=== PATIENT | female | born 1935 | race Hispanic/Latino ===

== ENCOUNTER 2017-08-19 16:58 | Inpatient (IN) | payer MEDICARE ==
[2017-08-19 16:59] VITALS: BMI 32.5
--- NOTE | 2017-08-19 18:21 | ED PDOC ---
HPI: Hypertension/Hypotension Time Seen by Provider: 08/19/17 17:26 Chief Complaint (Nursing): High Blood Pressure Chief Complaint (Provider): Elevated blood pressure History Per: Patient Onset/Duration Of Symptoms: Days (3) Current Symptoms Are (Timing): Still Present Additional Complaint(s): 82yo female, with past medical history of hypertension, hypercholesterolemia, myelofibrosis, anemia, gout, presents to ED for evaluation of elevated blood pressure for the past 3 days. Patient reports she has been taking medication as prescribed with no relief of symptom. She also states she has dyspnea on exertion, which has been ongoing for years and is unchanged. She also reports leg edema for many months, worse over past 6 weeks but unchanged over the past 3 days. Patient denies any shortness of breath at rest, no chest pain, headache , changes in medications. Of note, patient states she recently started using vitamins for her eyes as told by her opthalmologist; patient unsure of name of vitamin. She states she had similar symptoms a few years ago and was seen here, given an extra rahman of Clonodine and discharged home. she has no other complaints. PCP: Dr. Francisco Javier Roper Past Medical History Reviewed: Historical Data, Nursing Documentation, Vital Signs Vital Signs: Last Vital Signs Temp 98.6 F 08/19/17 17:20 Pulse 91 H 08/19/17 17:20 Resp 16 08/19/17 17:20 BP 263/97 H 08/19/17 17:20 Pulse Ox 97 08/19/17 17:20 - Medical History PMH: Anemia, HTN, Hypercholesterolemia - Surgical History Surgical History: No Surg Hx - Family History Family History: States: Hypertension - Social History Current smoker - smoking cessation education provided: No Alcohol: None Drugs: Denies - Home Medications Home Medications: Ambulatory Orders Medication Instructions Recorded cloNIDine [clonidine HCl] 0.2 mg PO HS 03/08/15 Allopurinol [Zyloprim] 300 mg PO HS 10/14/16 Folic Acid 1 mg PO HS 10/14/16 Losartan [Cozaar] 100 mg PO BID 10/14/16 Ruxolitinib Phosphate [Jakafi] 15 mg PO HS 10/14/16 Simvastatin [Zocor] 20 mg PO HS 10/14/16 Cu/Se/Vit A/Vit C/Vit E/Zinc 1 tab PO BID 08/19/17 [Ocuvite] - Allergies Allergies/Adverse Reactions: Allergies Allergy/AdvReac Type Severity Reaction Status Date / Time codeine Allergy RASH Verified 08/19/17 17:20 Review of Systems ROS Statement: Except As Marked, All Systems Reviewed And Found Negative (as per HPI) Cardiovascular: Positive for: Other (elevated blood pressure). Negative for: Chest Pain Respiratory: Positive for: Other (dyspnea on exertion). Negative for: Shortness of Breath (at rest) Neurological: Negative for: Headache Physical Exam - Reviewed Nursing Documentation Reviewed: Yes Vital Signs Reviewed: Yes - Physical Exam Appears: Positive for: Non-toxic, No Acute Distress Head Exam: Positive for: ATRAUMATIC, NORMOCEPHALIC Skin: Positive for: Warm, Dry Eye Exam: Positive for: EOMI, PERRL ENT: Negative for: Pharyngeal Erythema, Tonsillar Exudate Neck: Positive for: Painless ROM, Supple Cardiovascular/Chest: Positive for: Regular Rate, Rhythm, Edema, Murmur Respiratory: Positive for: Normal Breath Sounds. Negative for: Rales, Wheezing , Respiratory Distress Gastrointestinal/Abdominal: Positive for: Soft. Negative for: Tenderness Back: Positive for: Normal Inspection. Negative for: Decreased ROM Extremity: Positive for: Pedal Edema. Negative for: Deformity Lymphatic: Negative for: Adenopathy Neurologic/Psych: Positive for: Alert. Negative for: Motor/Sensory Deficits - Laboratory Results Result Diagrams: 08/19/17 18:43 08/19/17 18:43 - ECG O2 Sat by Pulse Oximetry: 97 (RA) Pulse Ox Interpretation: Normal Medical Decision Making Medical Decision Making: Time: 1750 Impression: Hypertension Differential: acute kidney injury, CHR, electrolyte abnormalities, benign essential hypertension, accelerated hypertension. Plan: -- Labs -- Catapres 0.2 -- EKG Reassess Time: [address] Paris Roper who agrees with plan. States he has seen patient 2x this year, and at both visit pt had marked elevated blood pressure. 1900 Labs demonstrate acute renalinsufficiency and fluid overload vs CHF. Needs hospitalization for potential accelerated hypertension. DW Dr Roper again as well as with family and patient. Scribe Attestation: Documented by Tricia Gaston acting as a scribe for Yeimi Dupree MD. Provider Attestation: All medical record entries made by the Scribe were at my direction and personally dictated by me. I have reviewed the chart and agree that the record accurately reflects my personal performance of the history, physical exam, medical decision making, and the department course for this patient. I have also personally directed, reviewed, and agree with the discharge instructions and disposition. Disposition - Clinical Impression Clinical Impression: Uncontrolled hypertension, Renal insufficiency - Disposition Disposition Time: 19:00 Condition: GUARDED - Pt Status Changed To: Hospital Disposition Of: Observation - POA Present On Arrival: None
[2017-08-19 18:47] LABS: BASO % 0.4 % (0.0-2.0); EOS # 0.1 K/uL (0.0-0.7); EOS % 1.9 % (0.0-4.0); HEMATOCRIT 27.4 % (34.0-47.0); LYMPH # 0.8 K/uL (1.0-4.3); LYMPH % 13.9 % (20.0-40.0); MEAN CELL VOLUME 92.6 fl (81.0-99.0); MEAN CORPUSCULAR HEMOGLOBIN 30.2 pg (27.0-31.0); MEAN CORPUSCULAR HGB CONC 32.6 g/dL (33.0-37.0); MEAN PLATELET VOLUME 7.3 fl (7.2-11.7); MONO # 0.4 K/uL (0.0-0.8); MONO % 6.2 % (0.0-10.0); NEUT # 4.6 K/uL (1.8-7.0); NEUT % 77.6 % (50.0-75.0); NRBC % 0.1 % (0.0-0.0); RED CELL DISTRIBUTION WIDTH 18.1 % (11.5-14.5); WHITE BLOOD COUNT 5.9 K/uL (4.8-10.8)
[2017-08-19 18:57] LABS: ALB/GLOB RATIO 1.5 (1.0-2.1); BILIRUBIN,TOTAL 0.8 mg/dl (0.2-1.3); CALCIUM 9.4 mg/dL (8.4-10.2); MAGNESIUM 2.3 MG/DL (1.6-2.3); PHOSPHOROUS 4.1 mg/dl (2.5-4.5); POTASSIUM 5.2 MMOL/L (3.6-5.0); TOTAL PROTEIN 7.1 G/DL (6.3-8.2)
[2017-08-19 19:08] LABS: TROPONIN I 0.029 ng/mL (0.00-0.120)
[2017-08-20 06:41] LABS: ALB/GLOB RATIO 1.4 (1.0-2.1); CALCIUM 9.3 mg/dL (8.4-10.2); POTASSIUM 5.4 MMOL/L (3.6-5.0); TOTAL PROTEIN 7.4 G/DL (6.3-8.2)
[2017-08-20] MEDS: Multivitamin With Minerals Tab PO SCH (09:47)
--- NOTE | 2017-08-20 09:59 | CP.PCM.CON ---
History of Present Illness - History of Present Illness History of Present Illness: This patient is a 82 years of age I was called to see for abnormal kidney function. Patient was admitted with very high blood pressure require some medications and she has been having difficulty to control of the blood pressure because she is having some side effect of some antihypertensive medication. Patient was on losartan as well No nausea no vomiting reported and no headache . No chest pain no shortness of breath at the present. Past medical history Significant for #1 hypertension. #2 chronic kidney disease serum creatinine baseline in the range of 1.9 or so. #3 history of polycythemia and she is being receiving medication. Review of Systems - Constitutional Constitutional: As Per HPI, Weakness. absent: Headache, Night Sweats - Cardiovascular Cardiovascular: Edema, Leg Edema. absent: Acrocyanosis, Chest Pain, Dyspnea, Leg Ulcers - Respiratory Respiratory: absent: Cough, Dyspnea, Hemoptysis - Gastrointestinal Gastrointestinal: absent: Abdominal Pain, Coffee Ground Emesis, Cramping, Diarrhea - Genitourinary Genitourinary: Nocturia - Musculoskeletal Musculoskeletal: Muscle Weakness. absent: Arthralgias, Numbness - Neurological Neurological: absent: Confusion, Dizziness, Focal Weakness, Headaches - Psychiatric Psychiatric: absent: Anxiety - Hematologic/Lymphatic Hematologic: absent: Easy Bleeding Past Patient History - Past Medical History & Family History Past Medical History?: Yes - Past Social History Alcohol: None Drugs: Denies - CARDIAC Hx Hypercholesterolemia: Yes Hx Hypertension: Yes - ENDOCRINE/METABOLIC Hx Diabetes Mellitus Type 2: No - HEMATOLOGICAL/ONCOLOGICAL Hx Anemia: Yes - MUSCULOSKELETAL/RHEUMATOLOGICAL Hx Falls: No - PSYCHIATRIC Hx Substance Use: No - SURGICAL HISTORY Hx Tonsillectomy: Yes - ANESTHESIA Hx Anesthesia: Yes Hx Anesthesia Reactions: No Meds Allergies/Adverse Reactions: Allergies Allergy/AdvReac Type Severity Reaction Status Date / Time codeine Allergy RASH Verified 08/19/17 17:20 - Medications Medications: Current Medications Allopurinol (Zyloprim) 300 mg PO HS [facility] Atorvastatin Calcium (Lipitor) 10 mg PO HS [facility] Last Admin: 08/19/17 23:05 Dose: 10 mg Clonidine HCl (Catapres) 0.2 mg PO BID [facility] Last Admin: 08/20/17 09:47 Dose: 0.2 mg Folic Acid (Folic Acid) 1 mg PO HS [facility] Last Admin: 08/19/17 23:05 Dose: 1 mg Heparin Sodium (Porcine) (Heparin) 5,000 units SC Q12 [facility] PRN Reason: Protocol Last Admin: 08/20/17 09:47 Dose: 5,000 units Home Med (Ruxolitinib Phosphate [Jakafi]) 15 mg PO HS [facility] Multivitamins/Minerals (Therapeutic-M Tab) 1 tab PO DAILY [facility] Last Admin: 08/20/17 09:47 Dose: 1 tab Physical Exam - Constitutional Appears: No Acute Distress - ENT Exam ENT Exam: Mucous Membranes Moist - Neck Exam Neck exam: Negative for: Lymphadenopathy - Respiratory Exam Respiratory Exam: NORMAL BREATHING PATTERN. absent: Chest Wall Tenderness, Rhonchi - Cardiovascular Exam Cardiovascular Exam: REGULAR RHYTHM. absent: JVD, Rubs - GI/Abdominal Exam GI & Abdominal Exam: Normal Bowel Sounds, Soft. absent: Distended - Extremities Exam Extremities exam: Positive for: pedal edema. Negative for: calf tenderness - Back Exam Back exam: absent: CVA tenderness (L), CVA tenderness (R) - Neurological Exam Neurological exam: Alert Results - Vital Signs Recent Vital Signs: Last Vital Signs Temp 97.5 F L 08/20/17 08:00 Pulse 72 08/20/17 09:47 Resp 18 08/20/17 08:00 BP 174/68 H 08/20/17 09:47 Pulse Ox 98 08/20/17 08:00 - Labs Result Diagrams: 08/19/17 18:43 08/20/17 05:00 Labs: Laboratory Results - last 24 hr 08/19/17 08/19/17 08/20/17 18:43 18:43 05:00 WBC 5.9 RBC 2.96 L Hgb 8.9 L Hct 27.4 L MCV 92.6 MCH 30.2 MCHC 32.6 L RDW 18.1 H Plt Count 125 L MPV 7.3 Neut % (Auto) 77.6 H Lymph % (Auto) 13.9 L [place] % (Auto) 6.2 Eos % (Auto) 1.9 Baso % (Auto) 0.4 Neut # 4.6 Lymph # 0.8 L [place] # 0.4 Eos # 0.1 Baso # 0.0 Sodium 145 144 Potassium 5.2 H 5.4 H Chloride 115 H 115 H Carbon Dioxide 20 L 15 L Anion Gap 15 19 BUN 45 H 44 H Creatinine 2.1 H 2.0 H Est GFR ( Amer) 27 29 Est GFR (Non-Af Amer) 23 24 Random Glucose 99 124 H Calcium 9.4 9.3 Phosphorus 4.1 Magnesium 2.3 Total Bilirubin 0.8 1.0 AST 25 29 ALT 38 29 Alkaline Phosphatase 79 85 Troponin I 0.0290 NT-Pro-B Natriuret Pep 3230 H Total Protein 7.1 7.4 Albumin 4.3 4.3 Globulin 2.8 3.0 Albumin/Globulin Ratio 1.5 1.4 Assessment & Plan (1) Chronic kidney disease, stage IV (severe) Assessment and Plan: #1 chronic kidney disease is stage IV. With serum baseline creatinine in the range of 1.9. Slight worsening of kidney function consistent with acute kidney injury perhaps related to hemodynamic changes with the hypertension. Suggestion Ultrasound of the kidney Serum phosphorus and PTH and vitamin D Protein to creatinine ratio in the urine. Renal diet consistent of 50 g protein 2 g sodium 2 g potassium #2 hypertension Patient CLONIDINE WHICH HAS BEEN INCREASED TODAY ALSO NORVASC I SUGGEST THE HYDROCHLOROTHIAZIDE 12.5 MG DAILY BECAUSE OF THE LEG EDEMA. #3 hyperkalemia although losartan discontinue but we will give small dose of Kayexalate #4 anemia and polycythemia as per hematology. 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
--- NOTE | 2017-08-20 10:00 | CP.PCM.HP ---
History of Present Illness - History of Present Illness History of Present Illness: This 82-year-old female long- standing hypertensive and chronically overweight came into the emergency room complaining of a persistently elevated blood pressure reading on her home blood pressure recording device. The patient is a poor historian and has at times been irregular in taking her medications and occasionally has high quantities of salt in her diet. Her blood pressure has been poorly controlled over a number of years. She has a fairly sedentary lifestyle and she has been overweight for number of years. The patient also has a history of myeloproliferative disease which had manifested itself as polycythemia initially and now she is in the phase of myelofibrosis. She requires repeated blood transfusions. She has no prior history of diabetes mellitus. One of her sisters was a diabetic for number of years. The patient has never suffered a myocardial infarction or congestive cardiac failure. Physical examination shows an elderly female who is alert awake and core her and she is afebrile she breathes comfortably at 14-16 breaths per minutes and has a heart rate of 72 bpm and regular. Her pedal pulses were feeble but distinctly present. There were no carotid bruits. Her extremities are warm and the nailbeds are pink there was no central or peripheral cyanosis. There was no clubbing. Thyroid and breast did not reveal anything abnormal. There was a mild pitting edema over both lower extremities. JVP was not elevated. The apex was not palpable. The first and second heart sounds were normal. A brief ejection systolic murmur was audible in the aortic area. It was conducted to the base of the neck. There were no rales. Abdomen was soft and slightly protuberant nontender and soft. Her electrocardiogram showed sinus rhythm with inverted T waves in 1 and aVL as well as V5 and V6, a pattern seen on her electrocardiogram of 2013 as well. Her lab data now shows a hemoglobin and hematocrit of 8.9 g and 27.4% respectively her WBC count and platelet counts were essentially normal. Her BUN/creatinine where 45 and 2.1 mg percent at admission these were in the range of 30 and 1.8 mg percent for more than 2 years. Her GFR is now 23 mL per minute it has been in the range of 27-30 mL per minute for a year and a half to 2 years. Her potassium was 5.2 mg/L at admission and is now 5.4 mg/L her losartan has been withheld for this reason. An echocardiogram done in 2013 had shown a significantly hypertrophied left ventricle with preserved left ventricular systolic function and is depressed diastolic compliance. There was no significant valvulopathy. Impression: Severe uncontrolled hypertension in a patient with chronic hypertension, exogenous obesity and stage III CKD possibly hypertension induced. Myeloproliferative disease with myelofibrosis. The patient had declined to use calcium channel blockers because of pedal edema. Her ARB has been withheld because of hyperkalemia and I have increased her dose of clonidine from 0.2 mg once a day to twice a day. I have requested a nephrology evaluation because of gradually worsening BUN/creatinine. An echocardiogram is also requested to evaluate her left ventricular systolic function. Present on Admission - Present on Admission Any Indicators Present on Admission: No Past Patient History - Past Medical History & Family History Past Medical History?: Yes - Past Social History Alcohol: None Drugs: Denies - CARDIAC Hx Hypercholesterolemia: Yes Hx Hypertension: Yes - ENDOCRINE/METABOLIC Hx Diabetes Mellitus Type 2: No - HEMATOLOGICAL/ONCOLOGICAL Hx Anemia: Yes - MUSCULOSKELETAL/RHEUMATOLOGICAL Hx Falls: No - PSYCHIATRIC Hx Substance Use: No - SURGICAL HISTORY Hx Tonsillectomy: Yes - ANESTHESIA Hx Anesthesia: Yes Hx Anesthesia Reactions: No Meds Allergies/Adverse Reactions: Allergies Allergy/AdvReac Type Severity Reaction Status Date / Time codeine Allergy RASH Verified 08/19/17 17:20 Results - Vital Signs Recent Vital Signs: Last Vital Signs Temp 97.5 F L 08/20/17 08:00 Pulse 72 08/20/17 09:47 Resp 18 08/20/17 08:00 BP 174/68 H 08/20/17 09:47 Pulse Ox 98 08/20/17 08:00 - Labs Result Diagrams: 08/19/17 18:43 08/20/17 05:00 Labs: Laboratory Results - last 24 hr 08/19/17 08/19/17 08/20/17 18:43 18:43 05:00 WBC 5.9 RBC 2.96 L Hgb 8.9 L Hct 27.4 L MCV 92.6 MCH 30.2 MCHC 32.6 L RDW 18.1 H Plt Count 125 L MPV 7.3 Neut % (Auto) 77.6 H Lymph % (Auto) 13.9 L [place] % (Auto) 6.2 Eos % (Auto) 1.9 Baso % (Auto) 0.4 Neut # 4.6 Lymph # 0.8 L [place] # 0.4 Eos # 0.1 Baso # 0.0 Sodium 145 144 Potassium 5.2 H 5.4 H Chloride 115 H 115 H Carbon Dioxide 20 L 15 L Anion Gap 15 19 BUN 45 H 44 H Creatinine 2.1 H 2.0 H Est GFR ( Amer) 27 29 Est GFR (Non-Af Amer) 23 24 Random Glucose 99 124 H Calcium 9.4 9.3 Phosphorus 4.1 Magnesium 2.3 Total Bilirubin 0.8 1.0 AST 25 29 ALT 38 29 Alkaline Phosphatase 79 85 Troponin I 0.0290 NT-Pro-B Natriuret Pep 3230 H Total Protein 7.1 7.4 Albumin 4.3 4.3 Globulin 2.8 3.0 Albumin/Globulin Ratio 1.5 1.4
[2017-08-20 10:12] LABS: CHOLESTEROL 188 mg/dL (0-199)
[2017-08-20] MEDS ORDERED: Sod Polystyrene Sulf 15 gm/60 ml Susp PO ONE (10:17)
--- NOTE | 2017-08-20 14:35 | US ---
PROCEDURE: Ultrasound of the Kidneys HISTORY: [id number] COMPARISON: None available. TECHNIQUE: Sonogram of the kidneys. FINDINGS: RIGHT KIDNEY: Measures: 5.8 x 4.9 x 11.4 cm. Normal in size, contour and echogenicity. No stone, solid mass lesion or hydronephrosis visualized. Incidental finding(s): Lower pole cysts less than 1 cm. Parapelvic cysts 1.5 x 1.4 cm LEFT KIDNEY: Measures: 4.3 x 4.8 x 10.7 cm. Normal in size, contour and echogenicity. No stone, solid mass lesion or hydronephrosis visualized. Multiple (3) simple cysts none larger than 9 mm. OTHER FINDINGS: None. IMPRESSION: No significant or acute findings to account for/ related to the clinical presentation. Additional benign and/or incidental findings described above.
[2017-08-20 17:22] LABS: CREATININE, RANDOM URINE 52.6 mg/dL
--- NOTE | 2017-08-20 17:54 | CARD ---
APPROVED REPORT EXAM: Two-dimensional and M-mode echocardiogram with Doppler and color Doppler. Other Information Quality : GoodRhythm : NSR INDICATION Hypertension/HCVD 2D DIMENSIONS IVSd1.67 (0.7-1.1cm)LVDd4.86 (3.9-5.9cm) LVOT Diameter2.16 (1.8-2.4cm)PWd1.60 (0.7-1.1cm) IVSs1.84 (0.8-1.2cm)LVDs2.62 (2.5-4.0cm) FS (%) 46.1 %PWs1.61 (0.8-1.2cm) LVEF (%)55.0 (>50%) M-Mode DIMENSIONS Left Atrium (MM)4.88 (2.5-4.0cm)IVSd1.29 (0.7-1.1cm) Aortic Root2.44 (2.2-3.7cm)LVDd5.41 (4.0-5.6cm) Aortic Cusp Exc.1.71 (1.5-2.0cm)PWd1.29 (0.7-1.1cm) IVSs1.79 cmFS (%) 55 % LVDs2.41 (2.0-3.8cm)PWs2.12 cm Aortic Valve AoV Peak Bjnkzrvb547.9cm/sAoV VTI44.7cmAO Peak GR.20mmHg LVOT Peak Amubjvay319.0cm/sLVOT VTI27.81cmAO Mean GR.11mmHg ART (VMAX)1.62on1HHC (VTI)1.24cm2 Mitral Valve MV E Euqwvodw140.2cm/sMV DECEL [id number] A Ybkfxlri829.1cm/s MV KKK08ekL/A ratio1.1MVA (PHT)3.13cm2 TDI Lateral E' Peak V6.27cm/sMedial E' Peak V7.99cm/sE/Lateral E'22.5 E/Medial E'17.7 LEFT VENTRICLE The left ventricle is normal size. There is moderate to severe concentric left ventricular hypertrophy. The left ventricular function is normal. The left ventricular ejection fraction is within the normal range. There is normal LV segmental wall motion. Transmitral Doppler flow pattern is Grade I-abnormal relaxation pattern. RIGHT VENTRICLE The right ventricle is normal size. There is normal right ventricular wall thickness. The right ventricular systolic function is normal. ATRIA The left atrium is mildly dilated. The right atrium size is normal. AORTIC VALVE The aortic valve is moderately sclerotic. No aortic regurgitation is present. There is mild valvular aortic stenosis. MITRAL VALVE The mitral valve is moderately thickened. There is no mitral valve stenosis. There is no mitral valve regurgitation noted. TRICUSPID VALVE The tricuspid valve is normal in structure. There is no tricuspid valve regurgitation noted. PULMONIC VALVE The pulmonary valve is normal in structure. There is no pulmonic valvular regurgitation. GREAT VESSELS The aortic root is normal in size. The IVC is normal in size and collapses >50% with inspiration. PERICARDIAL EFFUSION There is a trace loculated anterior pericardial effusion. <Conclusion> The left ventricle is normal size. There is moderate to severe concentric left ventricular hypertrophy. The left ventricular function is normal. The left ventricular ejection fraction is within the normal range. There is normal LV segmental wall motion. Transmitral Doppler flow pattern is Grade I-abnormal relaxation pattern. The aortic valve is moderately sclerotic. There is mild valvular aortic stenosis. A small PFO is noted
--- NOTE | 2017-08-20 19:09 | CARD ---
APPROVED REPORT EKG Measurement Heart [id number] <Conclusion> Sinus rhythm with premature atrial complexes Anteroseptal infarct, age undetermined T wave abnormality, consider lateral ischemia Abnormal ECG
[2017-08-21] MEDS: Multivitamin With Minerals Tab PO SCH (08:55)
--- NOTE | 2017-08-21 09:35 | CP.PCM.PN ---
Subjective - Date & Time of Evaluation Date of Evaluation: 08/21/17 Time of Evaluation: 08:50 - Subjective Subjective: Sitting up eating breakfast (appears rested and comfortable) Spiked syst BP >210mm Hg last evening ( otherwise BP has been mosly under 180 mm Hg syst) Now BP 168/70 mm Hg (Now on HCTZ, Clonidine .2 mg BID and Norvasc) Physical findings unchanged (Except No pedal oedema) Echo images reviewed LVH with vigorous LV wall motion and preserved syst function Mild AV sclerosis with trivial gradient Renal US shows normal renal size Proteinurea++ Lipid profile noted Await today's labs Have arranged dietitian to explain renal /HTN diet to pt Dr. Avilez's input appreciated Spoke with pt's daughter Objective - Vital Signs/Intake and Output Vital Signs (last 24 hours): Temp Pulse Resp BP Pulse Ox 97.7 F 66 20 188/63 H 97 08/21/17 08:00 08/21/17 08:56 08/21/17 08:00 08/21/17 08:56 08/21/17 08:00 - Medications Medications: Current Medications Allopurinol (Zyloprim) 300 mg PO HS [facility] Last Admin: 08/20/17 22:13 Dose: 300 mg Amlodipine Besylate (Norvasc) 10 mg PO DAILY [facility] Atorvastatin Calcium (Lipitor) 10 mg PO HS [facility] Last Admin: 08/20/17 22:12 Dose: 10 mg Clonidine HCl (Catapres) 0.2 mg PO BID [facility] Last Admin: 08/21/17 08:56 Dose: 0.2 mg Folic Acid (Folic Acid) 1 mg PO HS [facility] Last Admin: 08/20/17 22:13 Dose: 1 mg Heparin Sodium (Porcine) (Heparin) 5,000 units SC Q12 [facility] PRN Reason: Protocol Last Admin: 08/21/17 08:55 Dose: 5,000 units Home Med (Ruxolitinib Phosphate [Jakafi]) 15 mg PO HS [facility] Hydrochlorothiazide (Microzide) 12.5 mg PO DAILY [facility] Last Admin: 08/21/17 08:56 Dose: 12.5 mg Multivitamins/Minerals (Therapeutic-M Tab) 1 tab PO DAILY [facility] Last Admin: 08/21/17 08:55 Dose: 1 tab - Labs Labs: 08/19/17 18:43 08/20/17 05:00
[2017-08-21 09:46] LABS: ALB/GLOB RATIO 1.5 (1.0-2.1); CALCIUM 9.5 mg/dL (8.4-10.2); POTASSIUM 4.6 MMOL/L (3.6-5.0); TOTAL PROTEIN 6.9 G/DL (6.3-8.2)
--- NOTE | 2017-08-21 11:41 | CP.PCM.PN ---
Subjective - Date & Time of Evaluation Date of Evaluation: 08/21/17 Time of Evaluation: 11:27 - Subjective Subjective: Patient is up and around Patient feeling good no nausea no vomiting Vital sign noted was blood pressure is elevated as noted. No headache no shortness of breath no difficulty breathing. Objective - Vital Signs/Intake and Output Vital Signs (last 24 hours): Temp Pulse Resp BP Pulse Ox 97.7 F 66 20 188/63 H 97 08/21/17 08:00 08/21/17 10:28 08/21/17 08:00 08/21/17 10:28 08/21/17 08:00 - Medications Medications: Current Medications Allopurinol (Zyloprim) 300 mg PO HS [facility] Last Admin: 08/20/17 22:13 Dose: 300 mg Amlodipine Besylate (Norvasc) 10 mg PO DAILY [facility] Last Admin: 08/21/17 10:28 Dose: 10 mg Atorvastatin Calcium (Lipitor) 10 mg PO [facility] Last Admin: 08/20/17 22:12 Dose: 10 mg Clonidine HCl (Catapres) 0.2 mg PO BID [facility] Last Admin: 08/21/17 08:56 Dose: 0.2 mg Folic Acid (Folic Acid) 1 mg PO HS [facility] Last Admin: 08/20/17 22:13 Dose: 1 mg Heparin Sodium (Porcine) (Heparin) 5,000 units SC Q12 [facility] PRN Reason: Protocol Last Admin: 08/21/17 08:55 Dose: 5,000 units Home Med (Ruxolitinib Phosphate [Jakafi]) 15 mg PO [facility] Multivitamins/Minerals (Therapeutic-M Tab) 1 tab PO DAILY [facility] Last Admin: 08/21/17 08:55 Dose: 1 tab - Labs Labs: 08/19/17 18:43 08/21/17 09:25 - Constitutional Appears: No Acute Distress - ENT Exam ENT Exam: Mucous Membranes Moist - Respiratory Exam Respiratory Exam: NORMAL BREATHING PATTERN. absent: Chest Wall Tenderness - Cardiovascular Exam Cardiovascular Exam: REGULAR RHYTHM. absent: JVD, Rubs - GI/Abdominal Exam GI & Abdominal Exam: Soft, Normal Bowel Sounds - Extremities Exam Extremities Exam: absent: Calf Tenderness - Back Exam Back Exam: absent: CVA tenderness (L), CVA tenderness (R) - Neurological Exam Neurological Exam: Alert - Skin Skin Exam: Intact. absent: Cyanosis Assessment and Plan (1) Chronic kidney disease, stage IV (severe) Assessment & Plan: #1 Patient has underlying chronic kidney disease stage IV was slightly worsening kidney function. Patient received hydrochlorothiazide 12.5 mg yesterday and today And I would hold off hydrochlorothiazide for now perhaps she will need it 3 times a week when she goes as outpatient and may be a Thursday perhaps. #2 patient has what appear to be nephrotic syndrome proteinuria. Protein to creatinine ratio 8.1 proteinuria therefore patient should have kidney biopsy. Would be token to the patient. #3 hypertension patient started on Norvasc and have diet not enough to control the blood pressure we will increase her clonidine to 3 times a day. I spoke to the patient again now and she is agreeable for kidney biopsy but she will come sometime next week as outpatient to do it. So we will order PT PTT and INR in anticipation and preparation for the biopsy and to make sure no aspirin or any anticoagulation to be given within a week prior the biopsy Discussed with the primary care physician Dr. Roper We will be calling the daughter. 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
[2017-08-21] MEDS ORDERED: Ergocalciferol 50,000 Intl Units Cap PO SCH (11:45)
[2017-08-21 19:09] LABS: URINE BILIRUBIN NEGATIVE (NEGATIVE); URINE BLOOD SMALL (NEGATIVE); URINE COLOR YELLOW (YELLOW); URINE GLUCOSE (UA) 50 mg/dL (Normal); URINE KETONE NEGATIVE (NEGATIVE); URINE LEUKOCYTE ESTERASE NEG Leu/uL (Negative); URINE PROTEIN >=500 mg/dL (NEGATIVE); URINE UROBILINOGEN 0.2-1.0 mg/dL (0.2-1.0); WBC URINE 2 /hpf (0-5)
[2017-08-21 19:29] LABS: RBC URINE 5 /hpf (0-3)
[2017-08-22 00:44] VITALS: O2SAT 98
[2017-08-22 07:10] LABS: ALB/GLOB RATIO 1.5 (1.0-2.1); CALCIUM 8.9 mg/dL (8.4-10.2); POTASSIUM 5.4 MMOL/L (3.6-5.0)
[2017-08-22 08:41] VITALS: BP 172/70; PULSE 69; RESP 16; TEMP 97.4
--- NOTE | 2017-08-22 09:35 | CP.PCM.PN ---
Subjective - Date & Time of Evaluation Date of Evaluation: 08/22/17 Time of Evaluation: 09:10 - Subjective Subjective: Sitting up in a chair OOB, comfortable BP 168/64 mm Hg On Clonidine .2 mg TID and Norvasc 10 mg OD HCTZ has been D/Jayden due to rising Creatinin K+ today 5.4 mEq/L (Pt unhappy about taking Kayexalate) Renal diet (Na+/K+/Protein restricted) was explained by dietitian. Albuminuria ++++ (Pt has Nephrotic Syndr) Needs Renal Biopsy Pt and daughter agree to have it done next week Pt to have CMP/CBC on 18th AM (??K+) Will arrange Kidney biopsy for Pt to go home now/Scripts called in to [facility] PT/PTT being drawn now. Objective - Vital Signs/Intake and Output Vital Signs (last 24 hours): Temp Pulse Resp BP Pulse Ox 97.4 F L 69 16 172/70 H 98 08/22/17 08:00 08/22/17 08:00 08/22/17 08:00 08/22/17 08:00 08/22/17 08:00 - Medications Medications: Current Medications Allopurinol (Zyloprim) 300 mg PO HS [facility] Last Admin: 08/21/17 21:30 Dose: 300 mg Amlodipine Besylate (Norvasc) 10 mg PO DAILY [facility] Last Admin: 08/21/17 10:28 Dose: 10 mg Atorvastatin Calcium (Lipitor) 10 mg PO HS [facility] Last Admin: 08/21/17 21:34 Dose: 10 mg Clonidine HCl (Catapres) 0.2 mg PO TID [facility] Last Admin: 08/21/17 18:48 Dose: 0.2 mg Ergocalciferol (Drisdol 50,000 Intl Units Cap) 1 cap PO Q7D [facility] Last Admin: 08/21/17 14:46 Dose: 1 cap Folic Acid (Folic Acid) 1 mg PO HS [facility] Last Admin: 08/21/17 21:30 Dose: 1 mg Heparin Sodium (Porcine) (Heparin) 5,000 units SC Q12 [facility] PRN Reason: Protocol Last Admin: 08/21/17 21:29 Dose: 5,000 units Home Med (Ruxolitinib Phosphate [Jakafi]) 15 mg PO HS [facility] Multivitamins/Minerals (Therapeutic-M Tab) 1 tab PO DAILY [facility] Last Admin: 08/21/17 08:55 Dose: 1 tab - Labs Labs: 08/19/17 18:43 08/22/17 05:45
--- NOTE | 2017-08-22 09:55 | CP.PCM.DIS ---
Provider - Provider Date of Admission: 08/20/17 22:05 Attending physician: Marvin Roper MD Time Spent in preparation of Discharge (in minutes): 40 Hospital Course - Lab Results Lab Results: Most Recent Lab Values WBC 5.9 K/uL (4.8-10.8) 08/19/17 18:43 RBC 2.96 Mil/uL (3.80-5.20) L 08/19/17 18:43 Hgb 8.9 g/dL (12.0-16.0) L 08/19/17 18:43 Hct 27.4 % (34.0-47.0) L 08/19/17 18:43 MCV 92.6 fl (81.0-99.0) 08/19/17 18:43 MCH 30.2 pg (27.0-31.0) 08/19/17 18:43 MCHC 32.6 g/dL (33.0-37.0) L 08/19/17 18:43 RDW 18.1 % (11.5-14.5) H 08/19/17 18:43 Plt Count 125 K/uL (130-400) L 08/19/17 18:43 MPV 7.3 fl (7.2-11.7) 08/19/17 18:43 Neut % (Auto) 77.6 % (50.0-75.0) H 08/19/17 18:43 Lymph % (Auto) 13.9 % (20.0-40.0) L 08/19/17 18:43 [place] % (Auto) 6.2 % (0.0-10.0) 08/19/17 18:43 Eos % (Auto) 1.9 % (0.0-4.0) 08/19/17 18:43 Baso % (Auto) 0.4 % (0.0-2.0) 08/19/17 18:43 Neut # 4.6 K/uL (1.8-7.0) 08/19/17 18:43 Lymph # 0.8 K/uL (1.0-4.3) L 08/19/17 18:43 [place] # 0.4 K/uL (0.0-0.8) 08/19/17 18:43 Eos # 0.1 K/uL (0.0-0.7) 08/19/17 18:43 Baso # 0.0 K/uL (0.0-0.2) 08/19/17 18:43 ESR 69 mm/hr (0-30) H 08/21/17 11:52 Sodium 140 mmol/l (132-148) 08/22/17 05:45 Potassium 5.4 MMOL/L (3.6-5.0) H 08/22/17 05:45 Chloride 108 mmol/L (98-107) H 08/22/17 05:45 Carbon Dioxide 18 mmol/L (22-30) L 08/22/17 05:45 Anion Gap 19 (10-20) 08/22/17 05:45 BUN 60 mg/dl (7-17) H 08/22/17 05:45 Creatinine 2.3 mg/dl (0.7-1.2) H 08/22/17 05:45 Est GFR ( Amer) 25 08/22/17 05:45 Est GFR (Non-Af Amer) 20 08/22/17 05:45 Random Glucose 114 mg/dL (65-105) H 08/22/17 05:45 Hemoglobin A1c 6.1 % (4.2-6.5) 08/20/17 13:17 Calcium 8.9 mg/dL (8.4-10.2) 08/22/17 05:45 Phosphorus 3.9 mg/dl (2.5-4.5) 08/20/17 13:17 Magnesium 2.3 MG/DL (1.6-2.3) 08/19/17 18:43 Total Bilirubin 1.0 mg/dl (0.2-1.3) 08/22/17 05:45 AST 26 U/L (14-36) 08/22/17 05:45 ALT 34 U/L (9-52) 08/22/17 05:45 Alkaline Phosphatase 73 U/L (38-126) 08/22/17 05:45 Troponin I 0.0290 ng/mL (0.00-0.120) 08/19/17 18:43 NT-Pro-B Natriuret Pep 3230 pg/ml (0-900) H 08/19/17 18:43 Total Protein 7.0 G/DL (6.3-8.2) 08/22/17 05:45 Albumin 4.2 g/dL (3.5-5.0) 08/22/17 05:45 Globulin 2.8 gm/dL (2.2-3.9) 08/22/17 05:45 Albumin/Globulin Ratio 1.5 (1.0-2.1) 08/22/17 05:45 Triglycerides 196 mg/DL (0-149) H D 08/20/17 10:02 Cholesterol 188 mg/dL (0-199) 08/20/17 10:02 LDL Cholesterol Direct 109 mg/dL (0-129) 08/20/17 10:02 HDL Cholesterol 40 MG/DL (30-70) 08/20/17 10:02 25-OH Vitamin D Total 20.8 NG/ML (30.0-100.0) L 08/20/17 13:17 PTH Intact Whole Molec 151 pg/mL (14-64) H 08/20/17 13:17 Urine Color Yellow (YELLOW) 08/20/17 18:52 Urine Clarity Slighty-cloudy (Clear) 08/20/17 18:52 Urine pH 5.0 (5.0-8.0) 08/20/17 18:52 Ur Specific [place] 1.013 (1.003-1.030) 08/20/17 18:52 Urine Protein >=500 mg/dL (NEGATIVE) 08/20/17 18:52 Urine Glucose (UA) 50 mg/dL (Normal) 08/20/17 18:52 Urine Ketones Negative mg/dL (NEGATIVE) 08/20/17 18:52 Urine Blood Small (NEGATIVE) 08/20/17 18:52 Urine Nitrate Negative (NEGATIVE) 08/20/17 18:52 Urine Bilirubin Negative (NEGATIVE) 08/20/17 18:52 Urine Urobilinogen 0.2-1.0 mg/dL (0.2-1.0) 08/20/17 18:52 Ur Leukocyte Esterase Neg Amilcar/uL (Negative) 08/20/17 18:52 Urine RBC (Auto) 5 /hpf (0-3) H 08/20/17 18:52 Urine Microscopic WBC 2 /hpf (0-5) 08/20/17 18:52 Ur Squamous Epith Cells 2 /hpf (0-5) 08/20/17 18:52 Ur Random Creatinine 52.6 mg/dL 08/20/17 16:12 U Random Total Protein 430.0 mg/dL (0.0-12.0) H 08/20/17 16:12 - Hospital Course Hospital Course: This 82-year-old female came into the emergency room complaining of a persistently elevated blood pressure reading at home. Her systolic blood pressures consistently exceeded 200 mmHg. The patient denied any particular symptom but reported being extremely anxious about it. She has been a hypertensive for over 10 years and her blood pressure has been managed with an ARB and clonidine. The patient also has a history of myelofibrosis and is being managed with JAKAFI. She has never been a smoker or a ced diabetic and has never required anti-diabetic medications. She has never suffered a myocardial infarction or congestive cardiac failure. In the emergency room her systolic blood pressure exceeded 230 mmHg and her labs showed a BUN/creatinine of 45 and 2.1 mg percent which with moderately elevated compared to her earlier readings. The patient was hospitalized. Her electrocardiogram in the hospital showed sinus rhythm with ST-T abnormalities which were seen on earlier electro-cardiogram dating back to 2013. Her lab tests over last couple of years had shown a gradually increasing creatinine which was now in the range of 1.8-1.9 mg percent. In the emergency room her serum potassium was 5.2 mEq per liter which on following day was 5.4 mg /L. The patient was given additional doses of clonidine and hydrochlorothiazide was added because of pedal edema. She was seen by a automation architect who recommended giving her Kayexalate to correct her serum potassium. Her systolic blood pressure responded to the medications and consistently remained below 180 mmHg. In the meantime her BUN/creatinine were now 48 and 2.3 mg percent in light of which hydrochlorothiazide was withdrawn. Her serum potassium responded with a drop to 4.6 mg/L. In the meantime urinalysis showed evidence off large amount of protein in the urine and a diagnosis of nephrotic syndrome was made. A renal biopsy was recommended to patient and her daughter by the automation architect and the patient and her daughter agreed. Accordingly arrangements were made to have this done as an outpatient. The patient finally went home with her blood pressure consistently remaining around 160 to 170 mmHg Her echocardiogram in the hospital showed significant left ventricular hypertrophy with excellent systolic function. A trivial aortic gradient was detected. A dietary counseling was arranged for a renal diet. The patient verbalized understanding of her dietary restrictions. The final diagnosis was severe hypertension with newly diagnosed nephrotic syndrome myelofibrosis. The patient will obtain a complete metabolic profile to check her potassium day after tomorrow and agrees to take medication if potassium is significantly elevated. I will arrange a renal biopsy the following day. Labs were drawn to document her coagulation profile. Her platelet count was 125,000. Discharge Exam - Head Exam Head Exam: ATRAUMATIC, NORMOCEPHALIC Discharge Plan - Discharge Medications Prescriptions: cloNIDine [Catapres] 0.2 mg PO TID #100 tab amLODIPine [Norvasc] 10 mg PO DAILY #30 tab - Follow Up Plan Condition: GUARDED Disposition: HOME/ ROUTINE
[2017-08-22 10:42] LABS: PARTIAL THROMBOPLASTIN TIME 16.6 Seconds (25.6-37.1)
== END 2017-08-22 13:25 | disposition home or self-care (01) | DRG 683 ==
LOC: H.ER 16:58 → INTOOBSV 19:31 → H.ERHOLD 19:31 → H.TEL 21:30 → OBSVTOIN 08-20 22:05
PROVIDERS: ADMIT Internal Medicine Cardiovascular Disease; ATTEND Internal Medicine Cardiovascular Disease
DX: I12.9 Hypertensive chronic kidney disease with stage 1 through stage 4 chronic kidney disease, or unspecified chronic kidney disease (principal); N18.4 Chronic kidney disease, stage 4 (severe); E11.22 Type 2 diabetes mellitus with diabetic chronic kidney disease; D75.81 Myelofibrosis; E87.5 Hyperkalemia; I95.9 Hypotension, unspecified; N17.9 Acute kidney failure, unspecified; N04.9 Nephrotic syndrome with unspecified morphologic changes; D64.9 Anemia, unspecified; Z79.899 Other long term (current) drug therapy; E66.09 Other obesity due to excess calories; Z68.33 Body mass index [BMI] 33.0-33.9, adult; E78.00 Pure hypercholesterolemia, unspecified; M10.9 Gout, unspecified

== ENCOUNTER 2017-09-03 07:43 | Day surgery (SDC) | payer MEDICARE ==
[2017-09-03 08:49] VITALS: BMI 33.6
[2017-09-03] MEDS ORDERED: Midazolam 2 MG/2 ML VIAL ONE (11:17)
[2017-09-03] MEDS ORDERED: Lidocaine 2% Inj (20ml) ONE (11:53)
--- NOTE | 2017-09-03 12:13 | CP.SDSHP ---
Same Day Surgery H & P - History Proposed Procedure: US Guided Kidney Biopsy Pre-Op Diagnosis: CKD, Nephrotic Syndrome - Previous Medical/Surgical History Cardiac: Hypertension - Allergies Allergies: Allergies codeine Allergy (Verified 09/03/17 08:49) RASH - Physical Exam Vital Signs: Vital Signs 09/03/17 09/03/17 09/03/17 08:51 08:57 11:33 Temperature 97.8 F 97.3 F L Pulse Rate 55 L 55 L 65 Respiratory 18 21 Rate Blood Pressure 149/58 L 157/73 H O2 Sat by Pulse 97 100 Oximetry - Impression Impression: 82 yo female w/ ckd and nephrotic syndrome, plan us guided kidney biopsy - Date & Time Date: 09/03/17 Time: 11:45 Short Stay Discharge - Short Stay Discharge Admitting Diagnosis/Reason for Visit: NEPHROTIC SYNDROM Disposition: HOME/ ROUTINE
--- NOTE | 2017-09-03 12:14 | PCM.SURG1 ---
Surgeon's Initial Post Op Note - Surgeon's Notes Surgeon: Urbano Fontanez MD Front Office Specialist: None Type of Anesthesia: MAC Pre-Operative Diagnosis: CKD, Nephrotic Syndrome Operative Findings: Left renal cortical thinning, no hydronephrosis or nephrolithiasis Post-Operative Diagnosis: CKD, Nephrotic Syndrome Operation Performed: US guided LEFT kidney biopsy (non-targeted) Specimen/Specimens Removed: 18g core x 3 Estimated Blood Loss: EBL {In ML}: 0 Post-Op Condition: Good Date of Surgery/Procedure: 09/03/17 Time of Surgery/Procedure: 12:14
[2017-09-03] MEDS ORDERED: Sodium Chloride 0.45% 1,000 ML IV SCH (12:15)
[2017-09-03 12:54] VITALS: RESP 18
[2017-09-03 13:31] VITALS: TEMP 98
[2017-09-03 15:21] VITALS: BP 136/72; PULSE 66; O2SAT 99
--- NOTE | 2017-09-04 09:20 | US ---
PROCEDURE: ULTRASOUND-GUIDED RENAL BIOPSY CLINICAL HISTORY: 52-year-old female with chronic kidney disease and nephrotic syndrome is referred to Interventional Radiology for ultrasound-guided renal biopsy. COMPARISON: Correlation is made to renal ultrasound dated 08/20/2017. PROCEDURE: 1. Ultrasound-guided renal biopsy. PRE-PROCEDURE FINDINGS: 1. Cortical thinning without nephrolithiasis, hydronephrosis or contour deforming masses. POST-PROCEDURE FINDINGS: 1. No evidence of post-procedural complication. INTERVENTIONAL RADIOLOGIST: Urbano Fontanez M.D. (the attending was present for the entire procedure) ANESTHESIA: Provided by the attending anesthesiologist. Sedation was supervised by the anesthesiology attending with the presence of independent radiology nursing monitoring. Physiological data monitoring was performed throughout the entire procedure. The patient's blood pressure, EKG and pulse oximetry were recorded. The patient tolerated the procedure and sedation without untoward reactions. The intra-procedural sedation time was 25 minutes. MEDICATION: Lidocaine 1% for local subcutaneous analgesia. COMPLICATIONS: None. PROCEDURE DESCRIPTION AND FINDINGS: The risks, benefits, alternatives and possible complications of the procedure were fully discussed; all questions were answered and informed consent was obtained. The patient was brought into the interventional suite and a pre-procedure 'time-out' was performed. The patient was placed on the ultrasound table in the prone position. The left flank was prepped and draped in the usual sterile fashion. Maximum sterile barrier precautions were maintained throughout the entire procedure. Preliminary ultrasound images of the left kidney demonstrate increased echogenicity without nephrolithiasis, hydronephrosis or contour deforming masses. Following subcutaneous infiltration of lidocaine 1% for subcutaneous analgesia, under ultrasound guidance, a 17 gauge trocar needle was advanced into the lower pole of the left kidney with real-time visualization of needle entry. The ultrasound images were permanently recorded and submitted to the PACS. The inner stylet was carefully removed. An 18 gauge biopsy device was coaxially loaded into the introducer needle and under ultrasound guidance, a total of 3 core needle biopsies were obtained. The biopsy device and trocar needle were removed. Adequate hemostasis was achieved utilizing manual compression. A sterile adhesive dressing was applied over the puncture site. Post-procedure imaging demonstrated no complications. The patient tolerated the procedure well without immediate post-procedure complications and was transferred to the interventional radiology recovery area in stable condition. IMPRESSION: SUCCESSFUL ULTRASOUND-GUIDED LEFT RENAL BIOPSY.
== END 2017-09-03 14:10 | disposition home or self-care (01) ==
LOC: H.OPSURG 07:43
PROVIDERS: ATTEND Internal Medicine Cardiovascular Disease
DX: N04.9 Nephrotic syndrome with unspecified morphologic changes (principal); I12.9 Hypertensive chronic kidney disease with stage 1 through stage 4 chronic kidney disease, or unspecified chronic kidney disease; N18.9 Chronic kidney disease, unspecified
CPT/HCPCS: 50200; 88307; J2250; J3010; J7030

== ENCOUNTER 2018-01-07 17:42 | Emergency (ER) | payer MEDICARE ==
[2018-01-07 17:42] VITALS: BMI 32.4
[2018-01-07 18:58] LABS: BASO % 0.5 % (0.0-2.0); EOS # 0.1 K/uL (0.0-0.7); EOS % 1.3 % (0.0-4.0); LYMPH # 0.9 K/uL (1.0-4.3); LYMPH % 19.3 % (20.0-40.0); MEAN CELL VOLUME 93.6 fl (81.0-99.0); MEAN CORPUSCULAR HEMOGLOBIN 31.6 pg (27.0-31.0); MEAN CORPUSCULAR HGB CONC 33.8 g/dL (33.0-37.0); MEAN PLATELET VOLUME 7.5 fl (7.2-11.7); MONO # 0.4 K/uL (0.0-0.8); MONO % 9.4 % (0.0-10.0); NEUT # 3.1 K/uL (1.8-7.0); NEUT % 69.5 % (50.0-75.0); NRBC % 1.2 % (0.0-0.0); RBC 1.88 Mil/uL (3.80-5.20); RED CELL DISTRIBUTION WIDTH 19.5 % (11.5-14.5); WHITE BLOOD COUNT 4.5 K/uL (4.8-10.8)
[2018-01-07 19:03] LABS: HEMOGLOBIN 5.9 g/dL (12.0-16.0)
[2018-01-07 19:14] LABS: ALB/GLOB RATIO 1.7 (1.0-2.1); ALBUMIN 4.6 g/dL (3.5-5.0); CALCIUM 9.7 mg/dL (8.4-10.2)
--- NOTE | 2018-01-07 19:48 | ED PDOC ---
Syncope/Near Syncope/Dizziness Time Seen by Provider: 01/07/18 18:00 Chief Complaint (Nursing): Dizziness/Lightheaded Chief Complaint (Provider): Dizziness/Lightheaded History Per: Patient History/Exam Limitations: no limitations Onset/Duration Of Symptoms: Hrs Current Symptoms Are (Timing): Still Present Additional Complaint(s): 82 year old female, with a past medical history of uncontrolled hypertension, renal insufficiency, myelofibrosis, and chronic anemia, presents to the ED with complaints of dizziness and feeling lightheaded, onset one day. Patient was seen by fishing tool supervisor, Dr. Hoyt and has had blood work done this morning which showed results of HgB of 6.3, thus prompting todays visit. Denies shortness of breath, chest pain. Adamently states she does not want to be admitted to the hopsital. pt accompanied by her daughter at bedside. Bearing Press Machine Operator: Dr. Marilu Roper Senior Technical Specialist: Dr. Ezekiel Hoyt Past Medical History Reviewed: Historical Data, Nursing Documentation, Vital Signs Vital Signs: Last Vital Signs Temp 97.9 F 01/07/18 18:05 Pulse 83 01/07/18 18:05 Resp 18 01/07/18 18:05 BP 179/73 H 01/07/18 18:05 Pulse Ox 95 01/07/18 18:05 - Medical History PMH: Anemia, HTN, Hypercholesterolemia - Surgical History Surgical History: Tonsillectomy - Family History Family History: States: Hypertension - Social History Current smoker - smoking cessation education provided: No Alcohol: None Drugs: Denies - Home Medications Home Medications: Ambulatory Orders Medication Instructions Recorded Folic Acid 1 mg PO HS 10/14/16 Ruxolitinib Phosphate [Jakafi] 15 mg PO HS 10/14/16 Simvastatin [Zocor] 20 mg PO HS 10/14/16 Allopurinol [Zyloprim] 300 mg PO HS #30 08/22/17 Cu/Se/Vit A/Vit C/Vit E/Zinc 1 tab PO BID #60 08/22/17 [Ocuvite] Ergocalciferol [Drisdol 50,000 1 cap PO Q7D #10 cap 08/22/17 Intl Units Cap] amLODIPine [Norvasc] 10 mg PO DAILY #30 tab 08/22/17 cloNIDine [Catapres] 0.2 mg PO TID #100 tab 08/22/17 - Allergies Allergies/Adverse Reactions: Allergies Allergy/AdvReac Type Severity Reaction Status Date / Time codeine Allergy RASH Verified 01/07/18 18:03 Review of Systems ROS Statement: Except As Marked, All Systems Reviewed And Found Negative Neurological: Positive for: Dizziness (and lightheadedness) Physical Exam - Reviewed Nursing Documentation Reviewed: Yes Vital Signs Reviewed: Yes - Physical Exam Appears: Positive for: Well, Non-toxic, No Acute Distress Head Exam: Positive for: ATRAUMATIC, NORMOCEPHALIC Skin: Positive for: Warm, Dry, Pallor (slightly pale) Eye Exam: Positive for: Normal appearance, EOMI, PERRL ENT: Positive for: Normal ENT Inspection Neck: Positive for: Normal, Painless ROM, Supple Cardiovascular/Chest: Positive for: Regular Rate, Rhythm. Negative for: Murmur Respiratory: Positive for: Normal Breath Sounds. Negative for: Respiratory Distress Gastrointestinal/Abdominal: Positive for: Normal Exam, Soft. Negative for: Tenderness Back: Positive for: Normal Inspection Extremity: Positive for: Normal ROM. Negative for: Pedal Edema, Deformity Neurologic/Psych: Positive for: Alert, Oriented. Negative for: Motor/Sensory Deficits - Laboratory Results Result Diagrams: 01/07/18 18:40 01/07/18 18:40 - ECG O2 Sat by Pulse Oximetry: 95 (RA) Pulse Ox Interpretation: Normal Medical Decision Making Medical Decision Making: Time: 1839 Plan: symptomatic anemia -- Type and Screen -- CMP -- CBC with differentials -- Transfuse patient and call Dr. Nesha Roper. Time: 1923 -- Case discussed with Dr. Nesha Roper, who is patients primary research manufacturing operator, that after transfusion patient can be discharged from the ER. pt agreeable to plan. consent signed by pt. risks/benefits of blood transfusion explained to patient and daughter at bedside and questions answered. Time: 1944 Plan: -- ABO/RH Type Scribe Attestation: Documented by Aixa Bocanegra, acting as a scribe for Dr. Goyo Rao MD. Provider Scribe Attestation: All medical record entries made by the Scribe were at my direction and personally dictated by me. I have reviewed the chart and agree that the record accurately reflects my personal performance of the history, physical exam, medical decision making, and the department course for this patient. I have also personally directed, reviewed, and agree with the discharge instructions and disposition. Disposition - Clinical Impression Clinical Impression: Anemia - Patient ED Disposition Is Patient to be Admitted: No - Disposition Disposition: Transfer of Care Disposition Time: 23:55 Condition: STABLE Forms: XYDO (Slovenian) Patient Signed Over To: Colton Mccallum Handoff Comments: pending transfusion and then reeval/dc
--- NOTE | 2018-01-08 00:53 | ED PDOC ---
- Laboratory Results Result Diagrams: 01/07/18 18:40 01/07/18 18:40 - ECG O2 Sat by Pulse Oximetry: 96 (RA) Pulse Ox Interpretation: Normal Medical Decision Making Medical Decision Making: Time: 0000 Patient is transferred to myself from Dr. Rao pending transfusion and re- eval. 0200 Patient receiving transfusion, resting comfortably, no complaints. 0400 Patient remains well appearing well, receiving second unit of blood. 0600 Patient finished both units of blood, ambulated, feeling better, vitals normal. Will discharge. Patient understands return precautions and importance of close followup in 1 - [address] Hernandez. Scribe Attestation: Documented by Jael Mcleod, acting as a scribe for Colton Mccallum MD Provider Scribe Attestation: All medical record entries made by the Scribe were at my direction and personally dictated by me. I have reviewed the chart and agree that the record accurately reflects my personal performance of the history, physical exam, medical decision making, and the department course for this patient. I have also personally directed, reviewed, and agree with the discharge instructions and disposition. Disposition - Clinical Impression Clinical Impression: Anemia - POA Present On Arrival: None - Disposition Referrals: Marilu Roper MD [Family Provider] - Disposition: Routine/Home Disposition Time: 05:51 Condition: IMPROVED Instructions: Normocytic Normochromic Anemia Forms: [employer] (Frisian)
[2018-01-08 05:51] VITALS: BP 146/58; PULSE 68; RESP 16; TEMP 97.4
[2018-01-08 05:52] VITALS: O2SAT 96
== END 2018-01-08 06:51 | disposition home or self-care (01) ==
LOC: H.ER 17:42
DX: D64.9 Anemia, unspecified (principal); E78.00 Pure hypercholesterolemia, unspecified; I10 Essential (primary) hypertension; N18.9 Chronic kidney disease, unspecified; D75.81 Myelofibrosis
CPT/HCPCS: 36430; 80053; 85025; 86850; 86900; 86920; 99285; P9051

== ENCOUNTER 2018-02-09 10:52 | Day surgery (SDC) | payer MEDICARE ==
[2018-02-03 10:28] VITALS: BMI 32.9
[2018-02-03 12:05] VITALS: RESP 20
[2018-02-09] MEDS ORDERED: Phenylephrine 2.5% Opht Soln OD ONE (11:35)
[2018-02-09] MEDS ORDERED: Tropicamide 1% Opht 150 DROP/15 ML LEFTEYE SCH (11:45)
[2018-02-09] MEDS ORDERED: Flurbiprofen 0.03% Opht SOLN OS SCH (11:45)
[2018-02-09] MEDS ORDERED: Maxitrol Opht Susp ONE (12:00)
[2018-02-09] MEDS ORDERED: EPINEPHrine 1 mg/ml (1:1000) Inj ONE (12:01)
[2018-02-09] MEDS ORDERED: Tetracaine 0.5% Ophth 2 ML BOTTLE ONE (12:01)
[2018-02-09] MEDS ORDERED: Lidocaine 1% 20 MG/2 ML PF AMP ONE (12:02)
[2018-02-09] MEDS ORDERED: Pilocarpine 1% Opht Soln ONE (12:02)
[2018-02-09] MEDS ORDERED: CA CL/K CL/NA CL 500 ML IR ONE (12:03)
[2018-02-09] MEDS ORDERED: Povidone Iodine 5% Opht SOLUTION ONE (12:04)
[2018-02-09] MEDS ORDERED: Chondroitin/Hyaluronate Opth Syringe KIT (0.55 ml-0.5 ml) IO ONE ×2 (12:04→14:58)
[2018-02-09] MEDS ORDERED: BSS 15 ML 45 ML IR ONE (12:04)
[2018-02-09] MEDS ORDERED: Carbachol 0.01% IO ONE (12:11)
[2018-02-09] MEDS ORDERED: Tropicamide 1% Opht 150 DROP/15 ML LEFTEYE ONE (12:12)
[2018-02-09] MEDS ORDERED: Flurbiprofen 0.03% Opht SOLN OU ONE (12:21)
[2018-02-09] MEDS ORDERED: Phenylephrine 2.5% Opht Soln OS ONE (12:30)
[2018-02-09] MEDS ORDERED: Sodium Chloride 0.9% 500 ML IV ONE (14:40)
[2018-02-09] MEDS ORDERED: Midazolam 2 MG/2 ML VIAL ONE (14:41)
[2018-02-09] MEDS ORDERED: Tetracaine 0.5% Ophth 2 ML BOTTLE OS ONE (14:50)
[2018-02-09] MEDS ORDERED: BSS 15 ML SOL IR ONE (14:55)
[2018-02-09] MEDS ORDERED: Maxitrol Opht Susp OS ONE (15:00)
--- NOTE | 2018-02-09 15:08 | CARD ---
APPROVED REPORT EKG Measurement Heart [id number] <Conclusion> Normal sinus rhythm Inferior infarct, age undetermined Anteroseptal infarct, age undetermined T wave abnormality, consider lateral ischemia Abnormal ECG
[2018-02-09 17:15] VITALS: PULSE 75
[2018-02-09 17:17] VITALS: BP 188/72; TEMP 98.2; O2SAT 98
--- NOTE | 2018-02-10 11:10 | OP ---
PROCEDURE DATE: 02/09/2018 SURGEON: GALDINO REAL MD ANESTHESIOLOGIST: SORAYA SALAS MD ANESTHESIA: LOCAL / IV SEDATION PREOPERATIVE DIAGNOSIS: CATARACT LEFT EYE. POSTOPERATIVE DIAGNOSIS: CATARACT LEFT EYE. OPERATION: CLEAR CORNEAL PHACOEMULSIFICATION WITH LENS IMPLANT LEFT EYE. PREPARATION AND PROCEDURE: After the patient was prepped and draped in the usual manner for sterile ophthalmic surgery, local IV sedation was administered ; eye seals were applied to the upper and lower lid margins and an adult wire lid speculum was placed within the lids. Under microsurgical control, a two- step clear corneal incision was made into the anterior chamber. The initial incision was perpendicular to the corneal plane. The second incision with the keratome was placed at a 45-degree angle to the first incision. One cc of one percent Xylocaine MPF was instilled into the anterior chamber to achieve proper intraocular anesthesia. At this time, the Viscoelastic was injected into the anterior chamber for protection of the endothelium and for maintenance of the chamber depth. A 360-degree continuous curvilinear capsulorrhexis was performed using a pre-bent 25-gauge needle. Hydrodissection and hydrodelineation were performed using a Adrian cannula and balanced salt solution. Utilizing the tip of the Adrian cannula, the nucleus was rotated freely within the capsular bag. A standard one-handed phacoemulsification was utilized at this time for sculpting and rotating of the nucleus. The nucleus was fragmented in its entirety and aspirated without any consequence. A standard I&A was carried out for the residual cortical material. No residual material was noted within the capsular bag. The posterior capsule was noted to be clear. Additional Viscoelastic was injected into the capsular bag in preparation for lens implantation. After this has been satisfactorily achieved the intraocular lens injected through the corneal incision into the capsular bag. The intraocular lens was manipulated until it was properly oriented and the Viscoelastic was evacuated from the capsular bag and anterior chamber. The anterior chamber was reformed with balanced salt solution. The corneal incision was irrigated with BSS. The intraocular pressure was found to be within normal limits. This terminated the procedure. The speculum and lid drapes were removed. TobraDex ophthalmic suspension and Pilocarpine 1% drops one drop was applied to the eye. POSTOPERATIVE CONDITION: The patient was brought to the Post anesthesia Recovery area with stable vital signs. DGALDINO CALVIN MD
== END 2018-02-09 16:55 | disposition home or self-care (01) ==
LOC: H.OPSURG 10:52
PROVIDERS: ATTEND Ophthalmology
DX: H25.012 Cortical age-related cataract, left eye (principal); E78.5 Hyperlipidemia, unspecified; I10 Essential (primary) hypertension
CPT/HCPCS: 66984; 93005; J0171; J2250; J3010; J7030

== ENCOUNTER 2018-02-23 08:19 | Day surgery (SDC) | payer MEDICARE ==
[2018-02-22 08:30] VITALS: BMI 30.9
[2018-02-23] MEDS ORDERED: Tropicamide 1% Opht 150 DROP/15 ML OD ONE ×2 (09:15→09:30)
[2018-02-23] MEDS ORDERED: Maxitrol Opht Susp ONE (09:15)
[2018-02-23] MEDS ORDERED: Tetracaine 0.5% Ophth 2 ML BOTTLE ONE (09:15)
[2018-02-23] MEDS ORDERED: Flurbiprofen 0.03% Opht SOLN OD ONE ×2 (09:15→09:30)
[2018-02-23] MEDS ORDERED: Phenylephrine 2.5% Opht Soln OD ONE ×2 (09:15→09:30)
[2018-02-23] MEDS ORDERED: EPINEPHrine 1 mg/ml (1:1000) Inj ONE (09:15)
[2018-02-23] MEDS ORDERED: Lidocaine 1% 20 MG/2 ML PF AMP ONE (09:16)
[2018-02-23] MEDS ORDERED: CA CL/K CL/NA CL 500 ML IR ONE (09:16)
[2018-02-23] MEDS ORDERED: Pilocarpine 1% Opht Soln ONE (09:16)
[2018-02-23] MEDS ORDERED: BSS 15 ML 45 ML IR ONE (09:16)
[2018-02-23] MEDS ORDERED: Povidone Iodine 5% Opht SOLUTION ONE (09:17)
[2018-02-23] MEDS ORDERED: Chondroitin/Hyaluronate Opth Syringe KIT (0.55 ml-0.5 ml) IO ONE (09:17)
[2018-02-23 09:33] VITALS: RESP 18
[2018-02-23 10:10] LABS: BASO # 0.1 K/uL (0.0-0.2); BASO % 0.5 % (0.0-2.0); EOS % 0.2 % (0.0-4.0); HEMOGLOBIN 10.6 g/dL (12.0-16.0); LYMPH # 1.2 K/uL (1.0-4.3); LYMPH % 11.5 % (20.0-40.0); MEAN CELL VOLUME 87.8 fl (81.0-99.0); MEAN CORPUSCULAR HEMOGLOBIN 29.7 pg (27.0-31.0); MEAN CORPUSCULAR HGB CONC 33.9 g/dL (33.0-37.0); MEAN PLATELET VOLUME 7.9 fl (7.2-11.7); MONO # 0.7 K/uL (0.0-0.8); MONO % 6.7 % (0.0-10.0); NEUT # 8.6 K/uL (1.8-7.0); NEUT % 81.1 % (50.0-75.0); NRBC % 0.3 % (0.0-0.0); PLATELET COUNT 114 K/uL (130-400); RBC 3.57 Mil/uL (3.80-5.20); RED CELL DISTRIBUTION WIDTH 17.5 % (11.5-14.5); WHITE BLOOD COUNT 10.6 K/uL (4.8-10.8)
[2018-02-23] MEDS ORDERED: Carbachol 0.01% IO ONE (10:26)
[2018-02-23] MEDS ORDERED: Midazolam 2 MG/2 ML VIAL ONE (10:55)
[2018-02-23 11:18] LABS: BANDS 11 % (0-2); LYMPHOCYTE 12 % (20-50); METAMYELOCYTE 1 % (0-0); MONOCYTE 8 % (0-10); MYELOCYTE 1 % (0-0); NEUTROPHIL 64 % (42-75); PLATELET ESTIMATE SLIGHTLY DECREASED (NORMAL); REACTIVE LYMPHOCYTES 3 % (0-0); TOTAL CELLS COUNTED 100
[2018-02-23 11:21] LABS: ANISOCYTOSIS SLIGHT; LARGE PLATELETS PRESENT; POIKILOCYTOSIS SLIGHT; SCHISTOCYTES SLIGHT; TEARDROP CELLS SLIGHT
[2018-02-23] MEDS ORDERED: Lactated Ringer's 1,000 ML IV ONE (11:35)
[2018-02-23 15:44] VITALS: TEMP 97.6; O2SAT 97
[2018-02-23 16:06] VITALS: BP 138/78; PULSE 72
--- NOTE | 2018-02-24 13:34 | OP ---
PROCEDURE DATE: 02/23/2018 SURGEON: GALDINO REAL MD ANESTHESIOLOGIST: SORAYA SALAS MD ANESTHESIA: LOCAL / IV SEDATION PREOPERATIVE DIAGNOSIS: CATARACT RIGHT EYE. POSTOPERATIVE DIAGNOSIS: CATARACT RIGHT EYE. OPERATION: CLEAR CORNEAL PHACOEMULSIFICATION WITH LENS IMPLANT RIGHT EYE. PREPARATION AND PROCEDURE: After the patient was prepped and draped in the usual manner for sterile ophthalmic surgery, local IV sedation was administered ; eye seals were applied to the upper and lower lid margins and an adult wire lid speculum was placed within the lids. Under microsurgical control, a two- step clear corneal incision was made into the anterior chamber. The initial incision was perpendicular to the corneal plane. The second incision with the keratome was placed at a 45-degree angle to the first incision. One cc of one percent Xylocaine MPF was instilled into the anterior chamber to achieve proper intraocular anesthesia. At this time, the Viscoelastic was injected into the anterior chamber for protection of the endothelium and for maintenance of the chamber depth. A 360-degree continuous curvilinear capsulorrhexis was performed using a pre-bent 25-gauge needle. Hydrodissection and hydrodelineation were performed using a Adrian cannula and balanced salt solution. Utilizing the tip of the Adrian cannula, the nucleus was rotated freely within the capsular bag. A standard one-handed phacoemulsification was utilized at this time for sculpting and rotating of the nucleus. The nucleus was fragmented in its entirety and aspirated without any consequence. A standard I&A was carried out for the residual cortical material. No residual material was noted within the capsular bag. The posterior capsule was noted to be clear. Additional Viscoelastic was injected into the capsular bag in preparation for lens implantation. After this has been satisfactorily achieved the intraocular lens injected through the corneal incision into the capsular bag. The intraocular lens was manipulated until it was properly oriented and the Viscoelastic was evacuated from the capsular bag and anterior chamber. The anterior chamber was reformed with balanced salt solution. The corneal incision was irrigated with BSS. The intraocular pressure was found to be within normal limits. This terminated the procedure. The speculum and lid drapes were removed. TobraDex ophthalmic suspension and Pilocarpine 1% drops one drop was applied to the eye. POSTOPERATIVE CONDITION: The patient was brought to the Post anesthesia Recovery area with stable vital signs. DGALDINO CALVIN MD
== END 2018-02-23 16:05 | disposition home or self-care (01) ==
LOC: H.OPSURG 08:19
PROVIDERS: ATTEND Ophthalmology
DX: H26.9 Unspecified cataract (principal)
CPT/HCPCS: 36415; 66984; 85025; J0171; J2250; J3010; J7120